=== PATIENT | male | born 1980 | race Caucasian/White ===

== ENCOUNTER 2019-10-01 01:51 | Emergency (ER) | payer SELFPAY ==
[~2019-10-01] VITALS: Ht 175.3 cm; Wt 72.6 kg
[2019-10-01 01:55] VITALS: BP 136/68
[2019-10-01] MEDS ORDERED: KETOROLAC TROMETH 60MG/2ML VIAL IM ONE (07:15)
== END 2019-10-01 07:57 | disposition home or self-care (01) ==
LOC: ER 01:51 → EDBD 01:51 → ER 07:57
DX: S33.5XXA Sprain of ligaments of lumbar spine, initial encounter (principal); F17.210 Nicotine dependence, cigarettes, uncomplicated; X58.XXXA Exposure to other specified factors, initial encounter; Y93.89 Activity, other specified; Y92.89 Other specified places as the place of occurrence of the external cause; Y99.8 Other external cause status